=== PATIENT | female | born 1990 | race Caucasian/White ===

== ENCOUNTER 2019-06-30 19:15 | Inpatient (IN) ==
[2019-06-30 19:39] LABS: URINE SOURCE CLEAN CATCH
[2019-06-30 19:50] LABS: BILIRUBIN URINE NEGATIVE (NEGATIVE); BLOOD URINE NEGATIVE (NEGATIVE); COLOR YELLOW; GLUCOSE URINE NEGATIVE (NEGATIVE); KETONE URINE NEGATIVE (NEGATIVE); LEUKOCYTES URINE NEGATIVE (NEGATIVE); NITRITE URINE NEGATIVE (NEGATIVE); PROTEIN URINE NEGATIVE (NEGATIVE); SP GRAVITY URINE 1.024; TURBIDITY URINE CLEAR (CLEAR); UROBILINOGEN URINE NORMAL (NORMAL)
[2019-06-30 19:50] LABS: BASO# 0.06 X1000 (0.0-0.2); BASO% 0.5 % (0.0-0.8); EOS# 0.12 X1000 (0.0-0.7); EOS% 1.1 % (0.0-10.0); HEMATOCRIT 45.4 % (37.0-47.0); IMM GRAN# 0.03 X1000 (0.0-0.04); IMM GRAN% 0.3 % (0.0-0.5); LYMPH# 3.72 X1000 (1.2-3.4); MCH 29.8 PG (27-31); MCV 90.1 FL (81-99); MONO# 0.89 X1000 (0.11-0.59); MONO% 7.9 % (1.7-9.3); MPV 10.6 FL (7.4-10.4); NEUT# 6.45 X1000 (1.4-6.5); NEUT% 57.2 % (42.2-75.2); PLT 288 X1000 (130-400); RBC 5.04 XMIL (4.2-5.4); RDW 12.9 % (11.5-14.5); WBC 11.27 X1000 (4.8-10.8)
[2019-06-30 19:54] LABS: UR EPITHELIAL CELLS >10 /HPF (<10); URINE BACTERIA 1+ /HPF; URINE RBC <10 /HPF (<10); URINE WBC <10 /HPF (<10)
[2019-06-30 20:32] LABS: AGAP 13; ALB/GLOB RATIO 1.2; ALBUMIN 4.2 g/dL (3.5-5.0); ALKALINE PHOSPHATASE 71 U/L (32-104); BUN 13 mg/dL (8-22); CALCIUM 9.2 mg/dL (8.8-10.2); CHLORIDE 104 mmol/L (98-107); COSMO 282; CREATININE 0.7 mg/dL (0.5-0.9); ESTIMATED GFR > 60; GLUCOSE 105 mg/dL (70-104); GOT 22 U/L (10-30); GPT 25 U/L (10-36); LIPASE 56 U/L (13-60); POTASSIUM 3.8 mmol/L (3.5-5.1); SODIUM 141 mmol/L (136-145); TCO2 24 mmol/L (25-35); TOTAL BILIRUBIN < 0.15 mg/dL (0.20-1.00); TOTAL PROTEIN 7.6 g/dL (6.3-8.3)
[2019-06-30] MEDS ORDERED: ZOFRAN IV ONE (20:39)
[2019-06-30] MEDS ORDERED: TORADOL IV ONE (20:39)
[2019-06-30] MEDS ORDERED: NS 1,000 ML IV ONE ×2 (20:39→22:28)
[2019-06-30] MEDS ORDERED: BENTYL IM ONE (20:39)
--- NOTE | 2019-06-30 20:51 | PROVIDER DOCUMENTATION ---
HPI-Abdominal Pain/GI Problem - General Chief Complaint: Abdominal Pain Stated Complaint: ABD PAIN Time Seen by Provider: 06/30/19 20:16 Source: patient Allergies/Adverse Reactions: Patient Allergies Allergy/AdvReac Type Severity Reaction Status Date / Time Penicillins Allergy HIVES Verified 06/30/19 19:23 Home Medications: Home Medication List Medication Instructions Recorded Confirmed Last Taken Type NK [No Home Medications] 06/30/19 06/30/19 Unknown History - History of Present Illness-ABD Nature of Presenting Problems: 29 yr old F, presenting with a several hour hx of sudden onset, clenching, sharp RUQ pain, with associated nausea and vomiting. Pt reports symptoms began earlier today, she felt nauseous and had to force herself to throw up, after which she reports feeling better; the pt states that she attempted to eat something, but then the pain started. Pt last had an episode of pain this bad over a decade ago; no recent or remote hx of trauma or abdominal surgeries. Pt also notes that in the past three weeks she has been urinating more frequently, despite not drinking much water at all - reports on average she might 6 times a day. She denies pain with urination. Abdominal Pain Onset Location: reports: RUQ Pain Radiation: reports: epigastric Quality of Pain: reports: sharp Severity in ED: reports: moderate Onset/Duration: reports: 4-6 hours ago Timing: reports: still present Exposure to sick contacts?: No Modifying Factors: improves with: nothing Associated Symptoms: reports: nausea, vomiting Last BM: this morning Dark Stools Present?: reports: none noticed # of Vomiting Episodes: 1 Emesis Description: reports: none Review of Systems - Adult - REVIEW OF SYSTEMS - ADULT Constitutional: reports: no symptoms reported Eyes: reports: no symptoms reported Ears, Nose, Mouth & Throat: reports: no symptoms reported Cardiovascular: reports: no symptoms reported Respiratory: reports: no symptoms reported Gastrointestinal: reports: see HPI Genitourinary: reports: see HPI Musculoskeletal: reports: no symptoms reported Integumentary: reports: no symptoms reported Neurological: reports: no symptoms reported Psychiatric: reports: no symptoms reported Past History - Adult - PAST MEDICAL HISTORY-ADULT Review of Records: reports: Nursing Assessment Review Major Childhood Illnesses: reports: denies history Cardiovascular: reports: denies history Respiratory: reports: denies history Gastrointestinal: reports: denies history Obstetrical/Gynecological: reports: denies history Genitourinary: reports: denies history Musculoskeletal: reports: denies history Neurological: reports: denies history Psychiatric: reports: denies history Endocrine/Immune: reports: denies history Other Conditions: reports: denies history - PRIOR SURGERIES/PROCEDURES Surgical/Procedure History: reports: none - IMMUNIZATION STATUS Childhood Immunizations: See Nurse Assessment Flu Vaccine: See Nurse Assessment - FAMILY HISTORY Family History: reviewed, not pertinent - SOCIAL HISTORY Smoking: cigarettes, less than 1 pack/day Provider spent 3-5 mins advising pt. on dangers of tobacco.: Discussed manners to quit use, and f/u contacts for add'l counseling. Physical Exam-General - PHYSICAL EXAM-ADULT Initial Vital Signs Reviewed: Yes - CONSTITUTIONAL General Appearance: alert, no apparent distress - EYES Eyes: PERRL/EOMI - HEAD, EARS, NOSE, MOUTH & THROAT HENMT: normocephalic/atraumatic, moist mucous membranes - RESPIRATORY Respiratory: chest non-tender, lungs clear, normal breath sounds - CARDIOVASCULAR Cardiovascular: regular rate, rhythm - GASTROINTESTINAL (ABDOMEN) Abdominal Exam: normal bowel sounds, soft, tenderness (RUQ) - MUSCULOSKELETAL Extremity: no pedal edema, no calf tenderness - SKIN Integumentary: normal color, normal turgor, warm/dry - NEUROLOGIC Neurologic: grossly normal, no motor/sensory deficits. negative: facial droop - PSYCHIATRIC Psych/Mental Status: normal mood/affect, oriented x 3 Progress - PLAN OF CARE/RESULTS Progress/Plan/Lab Results: Vital Signs - 8 hr 06/30/19 19:17 Temperature 98.0 F Pulse Rate 76 Respiratory Rate 18 Blood Pressure 158/73 O2 Sat by Pulse Oximetry 99 Bedside Urine ED: Urine Bedside Start: 06/30/19 19:20 Freq: ORDERED Status: Active Protocol: Activity Type Activity Date Activity User E-Sign Co-Sign Detail Recorded Client Recorded Date Recorded By Document 06/30/19 19:33 [id number] 06/30/19 19:33 [id number] 06/30/19 19:33 Point of Care [Bedside Point of Care] -Lot # [id number] - Results Negative -Control Line Visible? No Laboratory Results - last 24 hr 06/30/19 06/30/19 06/30/19 19:30 19:30 19:32 WBC 11.27 H RBC 5.04 Hgb 15.0 Hct 45.4 MCV 90.1 MCH 29.8 MCHC 33.0 RDW Std Deviation 12.9 Plt Count 288 MPV 10.6 H Immature Gran % (Auto) 0.3 Neut % (Auto) 57.2 Lymph % (Auto) 33.0 [place] % (Auto) 7.9 Eos % (Auto) 1.1 Baso % (Auto) 0.5 Immature Gran # (Auto) 0.03 Neut # (Auto) 6.45 Lymph # (Auto) 3.72 H [place] # (Auto) 0.89 H Eos # (Auto) 0.12 Baso # (Auto) 0.06 Sodium 141 Potassium 3.8 Chloride 104 Carbon Dioxide 24 L Anion Gap 13 BUN 13 Creatinine 0.7 Estimated GFR/1.73 m2 > 60 BUN/Creatinine Ratio 19 Glucose 105 H Calculated Osmolality 282 Calcium 9.2 Total Bilirubin < 0.15 L AST 22 ALT 25 Alkaline Phosphatase 71 Total Protein 7.6 Albumin 4.2 Globulin 3.4 Albumin/Globulin Ratio 1.2 Lipase 56 Urine Source CLEAN CATCH Urine Color YELLOW Urine Turbidity CLEAR Urine pH 6.0 Ur Specific [place] 1.024 Urine Protein NEGATIVE Ur Glucose (Stick) NEGATIVE Ur Ketones (Stick) NEGATIVE Urine Blood NEGATIVE Urine Nitrite NEGATIVE Urine Bilirubin NEGATIVE Urobilinogen Dipstick NORMAL Urine Leukocytes NEGATIVE Urine WBC (Auto) <10 Urine RBC (Auto) <10 U Epithel Cells (Auto) >10 A Urine Bacteria (Auto) 1+ Orders Category Date Time Status ED: Urine Bedside ORDERED Care 06/30/19 19:20 Active NPO Diet 06/30/19 19:20 Active US ABDOMEN-COMPLETE [US] Stat Exams 06/30/19 20:20 Ordered CBC WITH DIFF [HEME] Stat Lab 06/30/19 19:30 Completed COMPREHENSIVE METABOLIC PANEL [CHEM] Stat Lab 06/30/19 19:30 Completed LIPASE [CHEM] Stat Lab 06/30/19 19:30 Completed URINALYSIS [URINALYSIS] Stat Lab 06/30/19 19:32 Completed 0.9% Sodium Chloride Inj [Ns] 1,000 ml Med 06/30/19 20:39 Active IV 999 mls/hr Dicyclomine [Bentyl] Med 06/30/19 20:39 Discontinued 20 mg IM NOW ONE Ketorolac [Toradol] Med 06/30/19 20:39 Discontinued 30 mg IV NOW ONE Ondansetron [Zofran] Med 06/30/19 20:39 Discontinued 8 mg IV NOW ONE Abd Pain/OB <20 weeks Stat Oth 06/30/19 19:20 Ordered Result Diagrams: 06/30/19 19:30 06/30/19 19:30 - REASSESSMENT Reassessment #1 Time Reassessed: 22:25 (Pt has stone in the neck of the gallbladder; alerted pt to findings; spoke with Dr. Swann who will admit. pt has penicillin allergy; will avoid Zosyn, give a dose of Cipro) - ULTRASOUND (By Radiology) 1 US Study: Abdomen Impression: See EMR Report ("EXAM: US ABDOMEN-COMPLETE INDICATION: RUQ abdominal pain COMPARISON: None. FINDINGS: There is a solitary shadowing stone in the neck of the gallbladder. No gallbladder wall thickening or pericholecystic fluid is appreciated. The common bile duct is normal in diameter. The liver is grossly unremarkable. Portal venous flow is hepatopetal. The visualized pancreas is unremarkable. The aorta and IVC are grossly unremarkable. The spleen is unremarkable. There is a 1.3 cm simple appearing left renal cyst. The kidneys are unremarkable, otherwise. IMPRESSION: Solitary shadowing stone in the neck of the gallbladder. No gallbladder wall thickening or pericholecystic fluid is appreciated") - CONSULTS/PCP/HOSPITALIST Notification #1 *Consult/PCP/Hospitalist*: Dr. Swann Time Discussed: 22:25 Consult Disposition: Admit Departure - Departure Date of Disposition Decision: 06/30/19 Time of Disposition Decision: 22:33 DIAGNOSIS: Gallbladder & bile duct stone, nonacute cholecystitis & obstruction Disposition: ADMITTED INPATIENT 09 Certified Medical Emergency: Emergent Condition: Stable Referrals and Follow-Ups: None,PCP [Primary Care Provider] - - Critical Care Note This patient required my direct & personal management of CC.: No Attestation - Physician/ XAVIER Attestation Patient care was provided by Advanced Practice Provider:: No The physician spent face to face time with patient:: Yes Advanced Practice Provider documentation review:: Supervising physician onsite and consulted in the evaluation and care of this patient. The physician did have a face to face encounter with the patient.
--- NOTE | 2019-06-30 22:02 | Diag Imaging Result Doc PS360 ---
EXAM: US ABDOMEN-COMPLETE INDICATION: RUQ abdominal pain COMPARISON: None. FINDINGS: There is a solitary shadowing stone in the neck of the gallbladder. No gallbladder wall thickening or pericholecystic fluid is appreciated. The common bile duct is normal in diameter. The liver is grossly unremarkable. Portal venous flow is hepatopetal. The visualized pancreas is unremarkable. The aorta and IVC are grossly unremarkable. The spleen is unremarkable. There is a 1.3 cm simple appearing left renal cyst. The kidneys are unremarkable, otherwise. IMPRESSION: Solitary shadowing stone in the neck of the gallbladder. No gallbladder wall thickening or pericholecystic fluid is appreciated. Electronically signed by Maxmius Verduzco 06/30/2019 9:59 PM
[2019-06-30] MEDS ORDERED: MORPHINE IV PRN (22:28)
[2019-06-30] MEDS ORDERED: CIPRO 400 MG/D5W 400 MG/200 ML IVPB IV ONE (22:30)
[2019-07-01] MEDS ORDERED: MORPHINE IV PRN (05:17)
--- NOTE | 2019-07-01 06:30 | HISTORY AND PHYSICAL ---
ADMITTING DIAGNOSIS: Cholecystitis. HISTORY OF PRESENT ILLNESS: A 29-year-old female who presented to the emergency department with sharp right upper quadrant pain since approximately 12 o'clock the day prior to the day of presentation. She reports vomiting made it feel better after a few minutes. She has had pain like this for the last couple of years, but it has gotten worse. She reports it is sharp and coming from the right upper quadrant and radiating to the back. She was seen in the emergency department and had an ultrasound that showed concerning findings for cholecystitis. PAST MEDICAL HISTORY: Obesity with a BMI of 37. PAST SURGICAL HISTORY: Right ankle surgery. SOCIAL HISTORY: Former smoker, but does vape. FAMILY HISTORY: Reviewed with patient, noncontributory. ALLERGIES: Penicillins. HOME MEDICATIONS: None. REVIEW OF SYSTEMS: Full 14 systems reviewed and negative except as specified in HPI. PHYSICAL EXAMINATION: VITAL SIGNS: Patient is currently afebrile. Her vital signs stable. GENERAL: No acute distress. HEENT: Normocephalic, atraumatic. Pupils equal, round, reactive to light. Mucous membranes moist. Oropharynx benign. NECK: Supple. Trachea midline. CARDIOVASCULAR: Regular rate and rhythm. LUNGS: Grossly clear. ABDOMEN: Soft, tender to palpation in the right upper quadrant but no peritoneal signs. EXTREMITIES: Moves all extremities. NEUROLOGIC: Grossly intact. SKIN: No signs of jaundice. VASCULAR: All extremities perfused. LABORATORY: White blood cell count is slightly elevated at 11.2, hematocrit is normal, platelet count is normal. Bilirubin, AST, ALT and alkaline phosphatase are all normal. Ultrasound reviewed and noted above. ASSESSMENT AND PLAN: A 29-year-old female with likely cholecystitis. Cholecystitis. At this time we will plan on cholecystectomy. We will put her on antibiotics. Discussed with her the risks, benefits, and alternatives of the procedure, risks including but not limited to bleeding, infection, risk of anesthesia, risk of common bile duct injury and bile leak discussed. We will plan on surgical intervention today. All questions answered. cc: Demarcus Swann MD
[2019-07-01] MEDS: MEFOXIN 2 GM/NS 2 GM/50 ML IVPB IV SCH ×2 (06:57→13:00)
[2019-07-01] MEDS ORDERED: XYLOCAINE 1%/EPI 1:100,000 ONE (14:22)
[2019-07-01] MEDS ORDERED: SODIUM CHLORIDE 0.9% ONE (14:22)
[2019-07-01] MEDS ORDERED: LR 1,000 ML ONE (14:22)
[2019-07-01] MEDS ORDERED: QUELICIN (DOSE) ONE (14:25)
[2019-07-01] MEDS ORDERED: XYLOCAINE-MPF 2% ONE (14:26)
[2019-07-01] MEDS ORDERED: ROBINUL ONE ×2 (14:26→15:04)
[2019-07-01] MEDS ORDERED: FENTANYL ONE (14:27)
[2019-07-01] MEDS ORDERED: DIPRIVAN 1% ONE (14:27)
[2019-07-01] MEDS ORDERED: REGLAN ONE (14:35)
[2019-07-01] MEDS ORDERED: PEPCID ONE (14:36)
[2019-07-01] MEDS ORDERED: STERILE WATER INJ. ONE (15:02)
[2019-07-01] MEDS ORDERED: VENTOLIN HFA ONE (15:02)
[2019-07-01] MEDS ORDERED: NORCURON ONE (15:02)
[2019-07-01] MEDS ORDERED: ZOFRAN ONE (15:04)
[2019-07-01] MEDS ORDERED: NEOSTIGMINE ONE (15:04)
[2019-07-01] MEDS ORDERED: DECADRON ONE (15:04)
[2019-07-01] MEDS ORDERED: TORADOL ONE (15:06)
[2019-07-01] MEDS ORDERED: NORCO-10 PO PRN (15:55)
[2019-07-01] MEDS: MORPHINE ONE ×3 (16:07→16:20)
[2019-07-01] MEDS ORDERED: PHENERGAN ONE (16:07)
[2019-07-01 17:00] VITALS: BP 116/68
--- NOTE | 2019-07-01 17:19 | OPERATIVE NOTE ---
PROCEDURE DATE: 07/01/2019 PREOPERATIVE DIAGNOSIS: Chronic cholecystitis. POSTOPERATIVE DIAGNOSIS: Chronic cholecystitis. PROCEDURE: Laparoscopic cholecystectomy. SURGEON: Demarcus Swann MD. FOUNTAIN MANAGER: Ernie Mairscal MD. Dr. Mariscal assisted with the entirety of the case. His presence was crucial to completion of the case. ANESTHESIA: General tracheal. INTRAOPERATIVE FINDINGS: Chronic cholecystitis and cholelithiasis. COMPLICATIONS: None at time of dictation. ESTIMATED BLOOD LOSS: 20 mL. SPECIMENS REMOVED: Gallbladder. BRIEF HISTORY: A 29-year-old female presenting with symptoms consistent with chronic cholecystitis but possibility of acute. The risks, benefits, and alternatives were discussed for cholecystectomy. All questions answered. DESCRIPTION OF PROCEDURE: After informed consent was obtained, the patient was brought to the operative theatre, transferred to the operating table, placed in the supine position. General endotracheal anesthesia was then performed without complication. Time-out was then performed confirming patient, date, procedure. All in agreement. At that time, attention was given to the abdomen. An infraumbilical incision was made through which using Optiview technique we inserted an 11 mm trocar and connected to insufflation. Pneumoperitoneum was achieved. Under direct visualization, we placed 3 more trocars, all 5 mm, 1 subxiphoid 2 in the right upper quadrant. Using these the gallbladder was identified, retracted cephalad. We dissected out the cystic duct and cystic artery to achieve the critical view of safety. We doubly clipped and ligated the cystic duct and cystic artery. We then dissected the gallbladder off the gallbladder fossa, placed it into an endobag and brought it out through the infraumbilical incision. We then reexamined the gallbladder fossa. There was no active drainage of bile. No bleeding. The clips were in good position. The infraumbilical incision was air tight, we did not have to close it. We then removed all trocars, disconnected insufflation. Pneumoperitoneum was released. All skin incisions closed with 4-0 Monocryl. The patient tolerated the procedure well. She will be discharged home. cc: Demarcus Swann MD
== END 2019-07-01 18:46 | disposition home or self-care (01) | DRG 419 ==
LOC: ED 19:15 → 4N 23:10
PROVIDERS: ADMIT Surgery; ATTEND Surgery